=== PATIENT | female | born 1945 | race Caucasian/White ===

== ENCOUNTER 2017-01-17 09:57 | Emergency (ER) | payer OTHER, MEDICAID ==
[~2017-01-17] VITALS: Ht 154.9 cm; Wt 68.5 kg
[~2017-01-17 09:57] MED LIST: ATORVASTATIN CA20 MG PO; GLUCOPHAGE500 MG PO; HYDROCHLOROTHIA25 M1 PO; LIPITOR20 MG PO; LISINOPRIL20 M1 PO; NEURONTIN400 MG PO; PAROXETINE HCL40 MG PO; PRILOSEC40 MG PO
[2017-01-17 10:06] VITALS: BP 111/59
--- NOTE | 2017-01-17 10:10 | NUR ---
PATIENT AMBULATED W/ ASSISTANCE TO ER BED 7.
--- NOTE | 2017-01-17 10:11 | NUR ---
Patient being evaluated by physician at bedside.
--- NOTE | 2017-01-17 10:13 | NUR ---
PATIENT BIB DAUGHTER PRESENTS TO ED WITH LEFT FOOT PAIN X4 DAYS. NO TRAUMA; DENIES N/V/D; SKIN IS PINK/WARM/DRY; AAOX4 WITH EVEN AND STEADY GAIT; LUNGS CLEAR BL; HR EVEN AND REGULAR; PT DENIES ANY FEVER, CP, SOB, OR COUGH AT THIS TIME; PATIENT STATES PAIN OF 10/10 AT THIS TIME; VSS; PATIENT POSITIONED FOR COMFORT; HOB ELEVATED; BEDRAILS UP X2; BED DOWN. ER MD MADE AWARE OF PT STATUS.
[2017-01-17] MEDS ORDERED: MORPHINE SULFATE 4 MG/ML SYR IVP ONE (10:15)
[2017-01-17] MEDS ORDERED: NACL 0.9% 1,000 ML IV SCH (10:15)
[2017-01-17] MEDS ORDERED: AMPICILLIN/SULBACTAM 1.5 GM VIAL IM ONE (10:25)
[2017-01-17] MEDS ORDERED: AMPICILLIN/SULBACTAM 1.5 GM in NACL 0.9% 50 ML IV ONE (10:45)
--- NOTE | 2017-01-17 11:20 | NUR ---
POST MEDICATION, AAO PT RESTING COMFORTABLY PAIN DOWN TO 6/10, PLACED ON MONITOR, VSS, NO ACUTE DISTRESS NOTED AT THIS TIME, BS UP X 2
[2017-01-17 12:17] VITALS: BP 95/61
--- NOTE | 2017-01-17 12:17 | NUR ---
Patient discharged with v/s stable. Written and verbal after care instructions given and explained. Patient alert, oriented and verbalized understanding of instructions. Wheel Chair Assisted with by DAUGHTER. All questions addressed prior to discharge. ID band removed. Patient advised to follow up with PMD. Rx of KEFLEX, TYLENOL given. Patient educated on indication of medication including possible reaction and side effects. Opportunity to ask questions provided and answered.
== END 2017-01-17 10:10 | disposition home or self-care (01) ==
LOC: MED 09:57
DX: L03.116 Cellulitis of left lower limb (principal); E11.9 Type 2 diabetes mellitus without complications; I10 Essential (primary) hypertension; K21.9 Gastro-esophageal reflux disease without esophagitis; Z98.890 Other specified postprocedural states; Z79.899 Other long term (current) drug therapy
CPT/HCPCS: 36415; 80053; 81001; 82150; 83605; 83690; 85025; 85651; 87040; 96365; 96375; 99284; J2270; J7030

== ENCOUNTER 2017-02-27 18:13 | Emergency (ER) | payer OTHER, MEDICAID ==
[~2017-02-27] VITALS: Ht 157.5 cm; Wt 68.9 kg
--- NOTE | 2017-02-27 18:17 | NUR ---
Patient wheelchair assisted to bed 3 at this time,
--- NOTE | 2017-02-27 18:20 | NUR ---
72/F BIB GRANDSON HERE FOR C/O FACIAL TRAUMA S/P GLF AFTER LOSING BALANCE OUTSIDE HOME. PT FELL FACE FIRST AGAINST PAVEMENT. SWELLING TO NOSE, DEFORMITY--LACERATION TO UPPER LIP 1 INCH VERTICAL. DENIES LOC. HX DM, HTN, HYPERLIPIDEMIA. RX METFORMIN, LISINOPRIL, SIMVASTATIN. SURGERIES , NECK SURGERY MORE THAN 10YRS. PT AAOX3. PER GRANDSON PT USES CANE AT HOME FOR AMBULATION, BUT PT DOES NOT LIKE USING CANE. WOUND CLEANED. SAFETY AND COMFORT MEASURES PROVIDED.
[2017-02-27 18:22] VITALS: BP 159/95
--- NOTE | 2017-02-27 19:00 | NUR ---
PT TRANSPORTED TO CT VIA GURNEY BY [facility] AND PT'S GRANDSON.
[2017-02-27] MEDS ORDERED: LIDOCAINE 1% 500 MG/50 ML VIAL INJ ONE (19:40)
[2017-02-27] MEDS ORDERED: LIDOCAINE 1% ED 50 ML ONE (19:41)
--- NOTE | 2017-02-27 19:50 | NUR ---
Patient being evaluated by physician at bedside.
[2017-02-27 21:10] VITALS: BP 152/77
--- NOTE | 2017-02-27 21:10 | NUR ---
Patient discharged with v/s stable. Written and verbal after care instructions in greek given and explained. Patient alert, oriented and verbalized understanding of instructions. Ambulatory with steady gait. All questions addressed prior to discharge. ID band removed. Patient advised to follow up with PMD. Rx of Tramadol, Motrin, and Augmentin given. Patient educated on indication of medication including possible reaction and side effects. Opportunity to ask questions provided and answered.
== END 2017-02-27 21:10 | disposition home or self-care (01) ==
LOC: MED 18:13
DX: S02.2XXA Fracture of nasal bones, initial encounter for closed fracture (principal); S02.32XA Fracture of orbital floor, left side, initial encounter for closed fracture; S01.511A Laceration without foreign body of lip, initial encounter; K21.9 Gastro-esophageal reflux disease without esophagitis; I10 Essential (primary) hypertension; E11.9 Type 2 diabetes mellitus without complications; W19.XXXA Unspecified fall, initial encounter; Y93.89 Activity, other specified; Y92.89 Other specified places as the place of occurrence of the external cause; Y99.8 Other external cause status
CPT/HCPCS: 12011; 70450; 70486; 72125; 82948; 90715; 96372; 99284; J2001

== ENCOUNTER 2020-10-27 15:58 | Emergency (ER) | payer MEDICARE, OTHER ==
[~2020-10-27] VITALS: Ht 152.4 cm; Wt 65.8 kg
[~2020-10-27 15:58] MED LIST changes: +ATOR20TA PO; +ATOR20TA40 PO; -ATORVASTATIN CA20 MG PO; +GABA400C PO; -GLUCOPHAGE500 MG PO; -HYDROCHLOROTHIA25 M1 PO; -LIPITOR20 MG PO; +LISI-420 PO; -LISINOPRIL20 M1 PO; -NEURONTIN400 MG PO; +OMEP40EC24 PO; +PARO40TA65 PO; -PAROXETINE HCL40 MG PO; -PRILOSEC40 MG PO
[2020-10-27 16:11] VITALS: BP 135/82
--- NOTE | 2020-10-27 16:11 | NUR ---
PT SENT TO [facility] TENT TO WAIT FOR MSE.
--- NOTE | 2020-10-27 16:30 | NUR ---
XOCHILT FROM HOME C/O COUGH, CONGESTION, BODY ACHES, TESTED NEGATIVE FOR COVID LAST THURSDAY HX DM, HTN Addendum: 10/27/20 at 1709 by [email or web address] NO NEED NURSING
--- NOTE | 2020-10-27 17:08 | NUR ---
Patient discharged with v/s stable. Written and verbal after care instructions given and explained. Patient alert, oriented and verbalized understanding of instructions. Ambulatory with steady gait. All questions addressed prior to discharge. ID band removed. Patient advised to follow up with PMD. Rx of TESSALON & PROMETHAZINE given. Patient educated on indication of medication including possible reaction and side effects. Opportunity to ask questions provided and answered.
[2020-10-27 17:09] VITALS: BP 135/82
== END 2020-10-27 17:08 | disposition home or self-care (01) ==
LOC: MED 15:58
DX: J06.9 Acute upper respiratory infection, unspecified (principal); E11.9 Type 2 diabetes mellitus without complications; K21.9 Gastro-esophageal reflux disease without esophagitis; I10 Essential (primary) hypertension; E78.5 Hyperlipidemia, unspecified; Z79.899 Other long term (current) drug therapy
CPT/HCPCS: 99283